=== PATIENT | male | born 1960 | race Caucasian/White ===

== ENCOUNTER 2017-06-26 12:46 | Inpatient (IN) | payer MEDICARE ==
[~2017-06-26] VITALS: Ht 172.7 cm; Wt 67.1 kg
[2017-06-26] VITALS (7 sets, daily range): BP systolic 154–173; BP diastolic 83–100
[~2017-06-26 12:46] MED LIST: ATOXIMETIN-B1 CAP; OXYCODONE5 M1 PO; ULTRAM50 MG PO
[2017-06-26 13:35] LABS: BASO # 0.1 10*3/uL (0.0-0.1); BASO % 0.7 % (0.0-1.0); EOS % 0.2 % (1.0-4.0); HEMOGLOBIN 15.2 g/dl (14.0-18.0); LYMPH # 1.6 10*3/uL (1.3-4.4); LYMPH % 17.3 % (27.0-41.0); MEAN CORPUSCULAR HGB 28.4 pg (27.0-31.0); MEAN CORPUSCULAR HGB CONC 33.8 g/dl (33.0-37.0); MEAN PLATELET VOLUME 9.5 fl (9.6-12.3); MONO # 0.4 10*3/uL (0.1-1.0); MONO % 3.7 % (3.0-9.0); NEUT # 7.4 10*3/uL (2.3-7.9); NEUT % 77.6 % (47.0-73.0); PLATELET COUNT AUTOMATED 329 10*3/uL (130-400); RED BLOOD COUNT 5.36 10*6/uL (4.50-5.90); RED CELL DISTRI WIDTH 12.9 % (0-14.5); WHITE BLOOD COUNT 9.5 10*3/uL (4.8-10.8)
[2017-06-26 13:42] LABS: ACT PARTIAL THROMBO TIME 26.3 SECONDS (20.8-31.5); INTERNATIONAL NORM RATIO 1.1 (2.0-3.5)
[2017-06-26 13:55] LABS: ALBUMIN 3.8 gm/dl (3.1-4.5); ALKALINE PHOSPHATASE 75 U/L (45-117); BUN 17 mg/dl (7-24); CHLORIDE 104 mmol/L (98-107); CREATININE 0.83 mg/dL (0.70-1.30); LIPASE 133 U/L (73-393); POTASSIUM 3.9 mmol/L (3.5-5.1); SGOT/AST 22 IU/L (3-35); SGPT/ALT 20 U/L (12-78); SODIUM 137 mmol/L (136-145); TOTAL PROTEIN 8.9 gm/dL (6.4-8.2); TROPONIN I < 0.015 ng/ml (<0.045)
--- NOTE | 2017-06-26 14:30 | NUR ---
PT VOMITING AT THIS TIME. DR MYLES AWARE. SEE NEW ORDERS.
[2017-06-26 14:51] LABS: BILIRUBIN NEGATIVE (NEGATIVE); BLOOD 2+ (NEGATIVE); CLARITY CLEAR (CLEAR); COLOR YELLOW (YELLOW); GLUCOSE NEGATIVE (NEGATIVE); KETONE NEGATIVE (NEGATIVE); LEUKO ESTERASE NEGATIVE (NEGATIVE); NITRITE NEGATIVE (NEGATIVE); PH 7.5 (5.0-9.0); UROBILINOGEN 0.2 E.U./dl (0.2-1.0)
[2017-06-26 15:00] LABS: BACTERIA TRACE; URINE AMPHETAMINES < 1000 (1000ng/ml); URINE BARBITURATES < 200 (200ng/ml); URINE BENZODIAZEPINES < 200 (200ng/ml); URINE CANNABINOIDS (THC) < 50 (50ng/ml); URINE COCAINE < 300 (300ng/ml); URINE METHADONE < 300 (300ng/ml); URINE OPIATES > 300 (300ng/ml)
[2017-06-26 15:02] LABS: URINE PHENCYCLIDINE < 25 (25ng/ml)
--- NOTE | 2017-06-26 15:55 | NUR ---
ATTEMPT MADE TO CALL REPORT AT THIS TIME. SKINNING MACHINE FEEDER INFORMED THIS RN THAT THE FLOOR WAS NOT AWARE OF THIS ADMISSION.
--- NOTE | 2017-06-26 16:40 | NUR ---
A 57, admitted to , under the services of KLEBER Schroeder DO with a diagnosis of DRUG ABUSE, METABOLIC ENCEPHALOPATHY, NAUSEA AND VOMITING. Chief complaint is CHANGE IN MENTAL STATUS. Patient arrived via bed from ER. Monitor applied. Initial assessment completed. Vital signs taken and recorded. KLEBER SCHROEDER DO notified of admission to the unit. Orders received. See assessment for past medical history, medications and allergies. Patient and/or family oriented to unit. [facility] visitation policy reviewed. Clothing/patient valuable form completed. STEPHANI ARGUETA
[2017-06-26] MEDS ORDERED: TRAZODONE50 MG PO (17:16)
[2017-06-26] MEDS ORDERED: ASPIRIN81 M1 PO (17:16)
[2017-06-26] MEDS ORDERED: DURAGESIC1 EAC1 TD (17:18)
[2017-06-26] MEDS ORDERED: Motrin,Rufen800 MG PO (17:18)
--- NOTE | 2017-06-26 17:35 | NUR ---
PATIENT IS A [facility] PATIENT. I VERIFIED THE MEDS WITH PATIENT AND HIS SISTER.
--- NOTE | 2017-06-26 18:08 | NUR ---
PT NOTED TO CONTINUE VOMITING. ZOFRAN GIVEN AND DR HYDE NOTIFIED. SHE STATED SHE WILL ORDER PHENERGAN.
--- NOTE | 2017-06-26 19:13 | NUR ---
PT GOT OOB AND RIPPED HIS IV OUT PURPOSELY SO HE COULD USED THE RESTROOM. HE STATED HE HAD TO HAVE A BOWEL MOVEMENT. PRESSURE DRESSING PLACED TO SITE.
[2017-06-27] VITALS (7 sets, daily range): BP systolic 162–187; BP diastolic 86–108
--- NOTE | 2017-06-27 02:01 | NUR ---
PATIENT MEDICATED WITH ZOFRAN PER PRN ORDER FOR NAUSEA. SEE EMAR. REINFORCED USE OF CALL LIGHT.
[2017-06-27 06:37] LABS: BASO % 0.1 % (0.0-1.0); HEMATOCRIT 48.8 % (42.0-52.0); HEMOGLOBIN 16.5 g/dl (14.0-18.0); LYMPH # 1.3 10*3/uL (1.3-4.4); LYMPH % 8.9 % (27.0-41.0); MEAN CELL VOLUME 83.4 fl (80.0-94.0); MEAN CORPUSCULAR HGB 28.2 pg (27.0-31.0); MEAN CORPUSCULAR HGB CONC 33.8 g/dl (33.0-37.0); MEAN PLATELET VOLUME 9.8 fl (9.6-12.3); MONO # 0.4 10*3/uL (0.1-1.0); MONO % 2.5 % (3.0-9.0); NEUT # 13.3 10*3/uL (2.3-7.9); NEUT % 87.8 % (47.0-73.0); PLATELET COUNT AUTOMATED 403 10*3/uL (130-400); RED BLOOD COUNT 5.85 10*6/uL (4.50-5.90); RED CELL DISTRI WIDTH 12.8 % (0-14.5); WHITE BLOOD COUNT 15.1 10*3/uL (4.8-10.8)
[2017-06-27 06:44] LABS: ALBUMIN 4.1 gm/dl (3.1-4.5); ALKALINE PHOSPHATASE 78 U/L (45-117); BUN 20 mg/dl (7-24); CHLORIDE 98 mmol/L (98-107); CHOLESTEROL 212 mg/dL (<200); CREATININE 0.94 mg/dL (0.70-1.30); HDL CHOLESTEROL 76 mg/dl (40-60); LDL CHOLESTEROL 125 mg/dL (9-159); PHOSPHOROUS 3.5 mg/dL (2.5-4.9); POTASSIUM 3.3 mmol/L (3.5-5.1); SGOT/AST 18 IU/L (3-35); SGPT/ALT 18 U/L (12-78); SODIUM 135 mmol/L (136-145); TOTAL PROTEIN 9.6 gm/dL (6.4-8.2); TRIGLYCERIDES 53 mg/dl (<150); VLDL CHOLESTEROL 11 mg/dL (6-40)
[2017-06-27 06:48] LABS: THYROID STIM HORMONE (HS) 0.288 uIU/ml (0.358-4.75)
[2017-06-27 07:01] LABS: INTERNATIONAL NORM RATIO 1.2 (2.0-3.5)
--- NOTE | 2017-06-27 08:14 | NUR ---
AT 0724 PT REFUSED SATX PT IN NO DISTRESS
--- NOTE | 2017-06-27 08:40 | NUR ---
Shift chart check completed.
[2017-06-27 08:41] LABS: VITAMIN D, 25-HYDROXY 13.5 ng/mL (30-100)
--- NOTE | 2017-06-27 10:19 | NUR ---
PATIENT REFUSED TO TAKE PO MEDICATIONS. HE IS HAVING NAUSEA AND VOMITING. STATED WE WOULD TRY AGAIN IN A LITTLE WHILE.
--- NOTE | 2017-06-27 10:41 | NUR ---
NOTIFIED DR HYDE THAT PATIENT HAD A FALL WITH NO OBVIOUS INJURIES AND PATIENT DENIES ANY PAIN
--- NOTE | 2017-06-27 11:00 | NUR ---
DR THAKKAR NOTIFIED THAT PATIENT SEEMS TO BE HAVING WITHDRAWAL SYMPTOMS.
--- NOTE | 2017-06-27 12:00 | NUR ---
AT 1125 PT REFUSED SA TX..PT IN NO DISTRESS
--- NOTE | 2017-06-27 15:00 | NUR ---
NOTIFIED DR HYDE THAT PATIENT WOULD LIKE A REGULAR DIET. PATIENT IS ALSO BECOMING MORE AGITATED AND DISORIENTED. MOTHER IS AT BEDSIDE AND STATES PATIENT IS VERY CONFUSED. ASKE DR HYDE ABOUT GETTING PATIENT SOMETHING FOR WITHDRAWAL.
--- NOTE | 2017-06-27 15:55 | NUR ---
AT 1542 PT'S VISITOR REFUSED SATX FOR PT.
--- NOTE | 2017-06-27 16:00 | NUR ---
PATIENT MEDICATED WITH IV PHENERGAN FOR VOMITING. PATIENT WAS CHANGED TO A REGULAR DIET BUT HASN'T EVEN GOTTEN TO EAT IT YET.
--- NOTE | 2017-06-27 17:15 | NUR ---
REPORT GIVEN TO MARCELO IN [facility]U. PATIENT IS CONFUSED AND HALLUCINATING. PATIENT TOLERATED TRANSFER TO ICU.
--- NOTE | 2017-06-27 17:54 | NUR ---
NOTIFIED OF BP 162/94. ATIVAN IS ORDERED PO ALTHOUGH PATIENT HAS BEEN VOMITING.SHE STATES TO GIVE IV ATIVAN FOR WITHDRAWAL AND TO GIVE PO ATIVAN ONCE ABLE TO TAKE PO. ALSO TOLD HER THAT PATIENT IS MENTIONING HARVONI TREATMENT IN THE PAST AND THAT HE IS CLEAN NOW.
--- NOTE | 2017-06-27 18:22 | NUR ---
DR. MCLEOD NOTIFIED THAT PATIENT IS ATTEMPTING TO GET OUT OF BED. HALLUCINATING AND DELUSIONAL. SOFT WRIST RESTRAINTS PLACED ON. NEW MEDICATION ORDERS RECEIVED.
--- NOTE | 2017-06-27 20:00 | NUR ---
PT CONFUSED AND COMBATIVE. ATTEMPTING TO CLIMB OUT OF BED. ATTEMPTS TO REORIENT PT UNSUCCESSFUL. DR REDDY NOTIFIED AND NEW ORDERS RECEIVED.
[2017-06-28] VITALS: BP 168/108
[2017-06-28 04:00] VITALS: BP 162/107
[2017-06-28 05:27] LABS: BASO % 0.1 % (0.0-1.0); HEMATOCRIT 49.5 % (42.0-52.0); HEMOGLOBIN 17.2 g/dl (14.0-18.0); LYMPH # 1.9 10*3/uL (1.3-4.4); LYMPH % 10.1 % (27.0-41.0); MEAN CELL VOLUME 82.8 fl (80.0-94.0); MEAN CORPUSCULAR HGB 28.8 pg (27.0-31.0); MEAN CORPUSCULAR HGB CONC 34.7 g/dl (33.0-37.0); MEAN PLATELET VOLUME 9.6 fl (9.6-12.3); MONO # 1.4 10*3/uL (0.1-1.0); MONO % 7.5 % (3.0-9.0); NEUT % 81.8 % (47.0-73.0); PLATELET COUNT AUTOMATED 400 10*3/uL (130-400); RED BLOOD COUNT 5.98 10*6/uL (4.50-5.90); RED CELL DISTRI WIDTH 12.9 % (0-14.5); WHITE BLOOD COUNT 18.4 10*3/uL (4.8-10.8)
[2017-06-28 05:37] LABS: BUN 22 mg/dl (7-24); CHLORIDE 99 mmol/L (98-107); CREATININE 0.92 mg/dL (0.70-1.30); POTASSIUM 3.7 mmol/L (3.5-5.1); SODIUM 134 mmol/L (136-145)
[2017-06-28 08:00] VITALS: BP 170/110
--- NOTE | 2017-06-28 09:20 | NUR ---
MEDICATED WITH ATIVAN 1MG IV FOR RESTLESSNESS, AGITATION, AND HALLUCINATIONS.
--- NOTE | 2017-06-28 10:23 | NUR ---
MEDICATED PT PER PRN ORDER WITH ATIVAN FOR PT'S CONTINUED AGITATION. PT TRYING TO CRAWL OUT OF BED AND EAT MONITOR WIRES.
--- NOTE | 2017-06-28 10:31 | NUR ---
Ativan effective,. Lying peacefully on back , lightly snoring.
--- NOTE | 2017-06-28 11:15 | NUR ---
MEDICATED WITH ATIVAN IV ORDERED FOR RESTLESSNESS AND AGITATION. ATTEMPTIONG TO GET OUT OF BED.
--- NOTE | 2017-06-28 11:26 | NUR ---
ATIVAN EFFECTIVE. LAYING IN BED COOPERATIVE WITH EYES CLOSED.
[2017-06-28 12:00] VITALS: BP 180/114
--- NOTE | 2017-06-28 12:30 | NUR ---
MEDICATED WITH ATIVAN IV FOR RESTLESSNESS AND WITHDRAWAL SYMPTOMS. HEART RATE 110, BP 170/110
--- NOTE | 2017-06-28 12:34 | NUR ---
MEDICATED WITH ATIVAN FOR RESTLESSNESS.
--- NOTE | 2017-06-28 13:16 | NUR ---
MEDICATED WITH ATIVAN FOR RESTLESSNESS.
--- NOTE | 2017-06-28 13:16 | NUR ---
ATIVAN EARLIER ONLY EFFECTIVE FOR A SHORT TIME.
[2017-06-28 16:00] VITALS: BP 150/100
--- NOTE | 2017-06-28 17:21 | NUR ---
RESTLESS, MEDICATED WITH ATIVAN IV ORDERED FOR OPITAE WITHDRAWAL.
[2017-06-28 20:00] VITALS: BP 153/96
--- NOTE | 2017-06-28 20:03 | NUR ---
DOZING AT PRESENT TIME.
--- NOTE | 2017-06-28 22:37 | NUR ---
PT DOZING BETWEEN PERIODS OF DISORIENTATION.
--- NOTE | 2017-06-28 22:42 | NUR ---
Shift chart check completed.24 HR chart check completed.
--- NOTE | 2017-06-28 23:43 | NUR ---
ON ASSESSMENT PATIENT RESTING QUIETLY AT TIMES, AND AT OTHER TIMES, HE'S RESTLESS, MUMBLING INCOHERENTLY. IV FLUIDS CONTINUE PER ORDER. ATTEMPTED TO HELP HIM USE URINAL, HE DID NOT VOID. BED IN LOW POSITION WITH WHEELS LOCKED, SIDERAILS UP, SOFT WRIST RESTRAINTS WITH UNIMPAIRED CIRCULATION. SEE ALL APPROPRIATE INTERVENTIONS.
[2017-06-29] VITALS: BP 155/111
--- NOTE | 2017-06-29 02:46 | NUR ---
A SOMEWHAT COHERENT CONVERSATION HELD WITH PATIENT TELLING ME THAT HE SMOKES HEROIN. PT SAYS HE HASN'T SLEPT IN DAYS, REQUESTED A "SLEEPING PILL". PRN DOSE OF RESTORIL GIVEN. NO DIFFICULTY SWALLOWING,ALTHOUGH HE CONTINUES TO SPIT SOME OF THE WATER AFTER DRINKING IT.
--- NOTE | 2017-06-29 03:16 | NUR ---
HAS BEEN QUIETLY ASLEEP FOR PAST 30 MINUTES.
--- NOTE | 2017-06-29 03:35 | NUR ---
THE SLEEP WAS SHORT-LIVED. HE'S YELLING OUT, ATTEMPTING TO GET OUT OF BED, PULLING AT RESTRAINTS.
--- NOTE | 2017-06-29 03:52 | NUR ---
RESTRAINTS UNTIED FROM THE BED FRAME TO ALLOW PT TO GET INTO COMFORTABLE POSITION AND FOR NOW APPEARS TO BE SLEEPING.
--- NOTE | 2017-06-29 06:19 | NUR ---
PT HAS BEEN SLEEPING SOUNDLY FOR PAST 2.5 HOURS SINCE UNTYING HIS RESTRAINTS AND THE EARLIER RESTORIL ALSO. I HAVE ASKED THE LAB NOT TO AWAKEN HIM YET FOR AM LABS.
[2017-06-29 07:50] LABS: BASO % 0.2 % (0.0-1.0); HEMATOCRIT 49.1 % (42.0-52.0); HEMOGLOBIN 16.5 g/dl (14.0-18.0); LYMPH # 1.8 10*3/uL (1.3-4.4); LYMPH % 11.7 % (27.0-41.0); MEAN CELL VOLUME 84.4 fl (80.0-94.0); MEAN CORPUSCULAR HGB 28.4 pg (27.0-31.0); MEAN CORPUSCULAR HGB CONC 33.6 g/dl (33.0-37.0); MEAN PLATELET VOLUME 9.6 fl (9.6-12.3); MONO # 0.9 10*3/uL (0.1-1.0); MONO % 5.7 % (3.0-9.0); NEUT # 12.5 10*3/uL (2.3-7.9); NEUT % 81.8 % (47.0-73.0); PLATELET COUNT AUTOMATED 348 10*3/uL (130-400); RED BLOOD COUNT 5.82 10*6/uL (4.50-5.90); RED CELL DISTRI WIDTH 12.9 % (0-14.5); WHITE BLOOD COUNT 15.2 10*3/uL (4.8-10.8)
[2017-06-29 07:59] VITALS: BP 137/95
[2017-06-29 08:00] LABS: ALBUMIN 3.6 gm/dl (3.1-4.5); ALKALINE PHOSPHATASE 62 U/L (45-117); BUN 25 mg/dl (7-24); CHLORIDE 103 mmol/L (98-107); CREATININE 0.76 mg/dL (0.70-1.30); PHOSPHOROUS 2.5 mg/dL (2.5-4.9); POTASSIUM 3.8 mmol/L (3.5-5.1); SGOT/AST 39 IU/L (3-35); SGPT/ALT 23 U/L (12-78); SODIUM 136 mmol/L (136-145)
--- NOTE | 2017-06-29 08:13 | NUR ---
PATIENT C/O NAUSEA. MEDICATED WITH ZOFRAN PER PRN ORDER. PATIENT YELLING OUT LOUDLY. RN INFORMED PATIENT THAT HE IS IN THE ICCU AND THAT IT IS INAPPROPRIATE TO YELL. BECOMES AGITATED WITH STAFF AND CURSING MULTIPLE TIMES. PATIENT IS ALERT AND ORIENTED X3.
--- NOTE | 2017-06-29 09:46 | NUR ---
PATIENT CONTINUES TO BE AGITATED AND YELLING FREQUENTLY. CONTINUES CURSING AT STAFF FREQUENTLY. MEDICATED WITH VISTARIL PER PRN ORDER. WILL CONTINUE TO MONITOR.
[2017-06-29 12:02] VITALS: BP 126/89
[2017-06-29 16:00] VITALS: BP 133/87
--- NOTE | 2017-06-29 17:13 | NUR ---
PATIENT C/O HEADACHE. MEDICATED WITH TYLENOL PER PRN ORDER. WILL CONTINUE TO MONITOR.
--- NOTE | 2017-06-29 18:30 | NUR ---
IV SITE INFILTRATED. SITE REMOVED. ROLL TENSION TESTER ATTEMPTED X2 TO RESTART IV. PATIENT BECAME ARGUMENTATIVE WITH STAFF. STATING I CAN SHOW YOU WHAT VEINS TO USE. RNS EXPLAINED TO PATIENT THAT WHAT HE USES TO INJECT DRUGS WE CANNOT NOT USE FOR IV SITES. PATIENT CONTINUED TO ARGUE WITH RNS AND THEN REFUSED TO ALLOW US TO ATTEMPT ANY FURTHER IV STICKS.
--- NOTE | 2017-06-29 18:41 | NUR ---
NOTIFIED OF PATIENT HAVING NO IV SITE AND THAT PATIENT VERY ARGUEMENTATIVE WITH STAFF REGARDING STARTING NEW SITE.
--- NOTE | 2017-06-29 19:20 | NUR ---
PATIENT LYING IN BED, APPROPRIATE AT THIS TIME. STATED HE DIDNT REMEMBER WHY HE WAS HERE, LAST THING HE REMEMBERS IN BEING UP ON THE 5TH FLOOR. PATIENT ASKED FOR A MOTRIN, STATED HIS CHEST WAS ACHING, TYLENOL WAS GIVEN. PATIENT ALSO ASKED FOR SOMETHING TO HELP HIM SLEEP. WILL GIVE AT A LATER TIME. PATIENT IN VIEW OF STAFF, WILL MONITOR.
[2017-06-29 20:00] VITALS: BP 122/84
--- NOTE | 2017-06-29 20:55 | NUR ---
PATIENT HAS COMPLAINTS OF MUSCLE ACHES, RESTLESSNESS, AND NOT SLEEPING. PATIENT WAS GIVEN RESTORIL, ROBAXIN, AND REQUIP. WILL MONITOR AND REASSESS.
--- NOTE | 2017-06-29 23:00 | NUR ---
PATIENT RESTING AT THIS TIME. NO DISTRESS NOTED.
[2017-06-30] VITALS: BP 105/72
--- NOTE | 2017-06-30 00:30 | NUR ---
PATIENT AWAKE, ASKING FOR SOMETHING TO DRINK, ASKED FOR SOMETHING TO HELP WITH PAIN. NOTHING AVAILABLE AT THIS TIME, PATIENT DID ASK TO STAND AND WALK A COUPLE OF STEPS WITH ASSISTANCE. PATIENT WEAK, WAS ABLE TO WALK TO DESK AND BACK TO BED WITH ASSISTANCE. PATIENT GOT BACK IN BED STATED HE WAS GONING TO TRY TO GET BACK TO SLEEP. WILL CONTINUE TO MONITOR.
--- NOTE | 2017-06-30 01:57 | NUR ---
PATIENT RESTING, NO DISTRESS NOTED.
--- NOTE | 2017-06-30 03:40 | NUR ---
PATIENT AWAKE ASKED FOR SOMETHING TO HELP WITH MUSCLE PAIN AND ANXIETY. ROBAXIN, VISTARIL AND ATIVAN GIVEN. WILL MONITOR AND REASSESS.
[2017-06-30 04:00] VITALS: BP 114/78
--- NOTE | 2017-06-30 04:30 | NUR ---
PATIENT RESTING, NO DISTRESS NOTED. PRN MEDS EFFECTIVE.
[2017-06-30 05:27] LABS: BASO % 0.3 % (0.0-1.0); EOS # 0.1 10*3/uL (0.0-0.4); EOS % 0.7 % (1.0-4.0); HEMATOCRIT 43.4 % (42.0-52.0); HEMOGLOBIN 14.7 g/dl (14.0-18.0); LYMPH # 3.6 10*3/uL (1.3-4.4); LYMPH % 39.5 % (27.0-41.0); MEAN CELL VOLUME 85.8 fl (80.0-94.0); MEAN CORPUSCULAR HGB 29.1 pg (27.0-31.0); MEAN CORPUSCULAR HGB CONC 33.9 g/dl (33.0-37.0); MEAN PLATELET VOLUME 9.6 fl (9.6-12.3); NEUT # 4.3 10*3/uL (2.3-7.9); NEUT % 47.8 % (47.0-73.0); PLATELET COUNT AUTOMATED 265 10*3/uL (130-400); RED BLOOD COUNT 5.06 10*6/uL (4.50-5.90); RED CELL DISTRI WIDTH 12.8 % (0-14.5)
[2017-06-30 05:45] LABS: ALBUMIN 3.1 gm/dl (3.1-4.5); BUN 27 mg/dl (7-24); CHLORIDE 104 mmol/L (98-107); CREATININE 0.92 mg/dL (0.70-1.30); PHOSPHOROUS 3.1 mg/dL (2.5-4.9); POTASSIUM 3.2 mmol/L (3.5-5.1); SGPT/ALT 28 U/L (12-78); SODIUM 138 mmol/L (136-145)
[2017-06-30 05:47] LABS: ALKALINE PHOSPHATASE 53 U/L (45-117); TOTAL PROTEIN 6.9 gm/dL (6.4-8.2)
[2017-06-30 06:00] LABS: SGOT/AST 40 IU/L (3-35)
[2017-06-30 08:02] VITALS: BP 108/69
--- NOTE | 2017-06-30 08:30 | NUR ---
PATIENT AWAKE AND ALERT. PATIENT DISORIENTED TO TIME. PATIENT BEING MORE COOPERATIVE AT THIS TIME. HE STARTED DISCUSSING HOW HE CUTS HIS FENTANYL PATCH IN THREES AND CHEWS A PIECE EACH DAY INSTEAD OF PLACING THE PATCH ON HIS SKIN. HE ALSO STATED HOW IT HAS BEEN A FEW WEEKS SINCE HE HAS "SHOT UP" WITH HEROINE. WILL CONTINUE TO MONITOR.
[2017-06-30] MEDS ORDERED: VITAMIN D22000 UNIT PO (10:30)
[2017-06-30] MEDS ORDERED: LISINOPRIL20 MG PO (10:30)
--- NOTE | 2017-06-30 12:15 | NUR ---
PATIENT DISCHARGED TO HOME. ALL BELONGINGS SENT HOME WITH PATIENT. DISCHARGE INSTRUCTIONS AND PRESCRIPTIONS GIVEN AND REVIEWED WITH PATIENT.
== END 2017-06-30 12:15 | disposition home or self-care (01) | DRG 896 ==
LOC: ED 12:46 → 5E 15:09 → ICCU 15:09 → EDHOLD 15:09 → 5E 15:20 → ICCU 06-27 17:03
PROVIDERS: Emergency Medicine; Hospitalist; Internal Medicine; ADMIT Internal Medicine
DX: F11.23 Opioid dependence with withdrawal (principal); G93.41 Metabolic encephalopathy; J18.9 Pneumonia, unspecified organism; E87.1 Hypo-osmolality and hyponatremia; J44.0 Chronic obstructive pulmonary disease with (acute) lower respiratory infection; I71.4 Abdominal aortic aneurysm, without rupture; F14.10 Cocaine abuse, uncomplicated; E55.9 Vitamin D deficiency, unspecified; M11.20 Other chondrocalcinosis, unspecified site; H91.90 Unspecified hearing loss, unspecified ear; M16.0 Bilateral primary osteoarthritis of hip; Z79.82 Long term (current) use of aspirin; Z79.899 Other long term (current) drug therapy; Z82.61 Family history of arthritis; Z71.6 Tobacco abuse counseling; Z91.81 History of falling; Z83.6 Family history of other diseases of the respiratory system; Z72.0 Tobacco use